=== PATIENT | female | born 1970 | race Caucasian/White ===

== ENCOUNTER 2018-06-02 03:04 | Emergency (ER) | payer BC ==
--- OUTSIDE RECORDS SUMMARY | 2018-06-02 03:06 | XMS REPORT | Continuity of Care Document ---
:1970 Author Organization Interface Problems Problem Status Onset Classification Date Comments Source Date Reported ACUTE HIP PAIN Active [facility] [address] [place] M25.552, M16.12 Active [place] [id number] [place] Acute hip pain Active Problem 11/14/2016 [facility] High Active Problem 11/14/2016 Ortho cholesterol and Spine Indigestion Active Problem 11/14/2016 [facility] Arthritis Active Problem 11/14/2016 [facility] Medications Medication Details Route Status Patient Ordering Order Source Instructions Provider Date Acetaminophen 1 tab, No Longer 11/11/19 Ortho 325 MG / Route: PO, Active 17 and Hydrocodone Drug Form: Spine Bitartrate 10 MG TAB, Oral Tablet Dosing Weight 118.455, kg, Q4H, PRN Pain Score 7-10, Start date: 11/11/16 8:56:00 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 (Same as: [place] 325/10) Acetaminophen 1 tab, No Longer 11/11/19 Ortho 325 MG / Route: PO, Active 17 and Hydrocodone Drug Form: Spine Bitartrate 5 MG TAB, Oral Tablet Dosing Weight 118.455, kg, Q4H, PRN Pain Score 4-6, Start date: 11/11/16 8:56:00 NURSERY WORKER, Duration: 30 day, Stop date: 12/11/16 8:55:00 CSTNotes: (Same as: [place] 325/5) Do not exceed 4gm/day of acetaminop hen. Zofran 4 mg, 2 No Longer 11/11/19 Ortho mL, Route: Active 17 and IV, Drug Spine form: INJ, Q8H, Dosing Weight 118.455, kg, PRN Nausea, Start date: 11/11/16 8:56:00 NURSERY WORKER, Duration: 30 day, Stop date: 12/11/16 8:55:00 CSTNotes: (Same as: Zofran) MEDICATION WASTE Product Size: 4 mg Product Wasted: ___ mg Lactated Ringers 1,000 mL, No Longer 11/11/19 Ortho 1,000 mL Rate: 40 Active 17 and ml/hr, Spine Infuse over: 25 hr, Route: IV, Dosing Weight 118.455 kg, Total Volume: 1,000, Start date: 11/11/16 7:36:00 NURSERY WORKER, Duration: 30 day, Stop date: 12/11/16 7:35:00 NURSERY WORKER valACYclovir 1 g 1 gm=1 Active 11/08/19 Ortho oral tablet tab, PO, 17 and Q12H, 0 Spine Refill(s) atorvastatin 20 20 mg=1 Active 11/08/19 Ortho mg oral tablet tab, PO, 17 and Daily, 0 Spine Refill(s) ibuprofen 800 mg 800 mg=1 Active 11/08/19 Ortho oral tablet tab, PO, 17 and TID, 0 Spine Refill(s) tramadol 50 mg=1 Active 02/26/20 Ortho hydrochloride 50 tab, PO, 16 and MG Oral Tablet PRN, 0 Spine Refill(s) Phentermine 37.5 mg=1 Active 02/26/20 Ortho Hydrochloride tab, PO, 16 and 37.5 MG Oral Daily, # Spine Tablet 30 tab, 0 Refill(s) Allergies, Adverse Reactions, Alerts Substance Category Reaction Severity Reaction Status Date Comments Source type Reported NKDA Assertion Drug Active allergy [facility] Immunizations Immunization Date Given Site Status Last Updated Comments Source Results Order Name Results Value Reference Date Interpretation Comments Source Range Hip w Hip w EXAM: MRI LEFT HIP WITH INTRA-ARTICULAR GADOLINIUM 02/25 [facility] contrast contrast /2015 - [place] MRI MRI DATE: 02/26/2016 Read by: Rajeev Caban MD Dictated Date/time: 02/26/16 12:23 Electronically Signed by: Rajeev Caban MD 02/26/16 12:36 FINAL REPORT INDICATION: Left hip pain. Osteoarthritis. TECHNIQUE: Multisequence multiplanar MRI examination of the left hip was performed following intra-articular gadolinium administration. Arthrogram is reported separately. COMPARISON STUDY: None. FINDINGS: Left hip alignment is normal. No fractures or destructive osseous lesions are detected. Moderate osteophyte formation is seen at the superolateral margin of acetabulum. Grade IV chondromalacia involves anterior weightbearing surface of the lateral femoral condyle, with associated subchondral marrow edema.. Otherwise grade II to III chondromalacia involves weightbearing surfaces of the femoral head and acetabulum. No fractures or destructive osseous lesions are seen. There is not MR evidence of avascular necrosis involving the left hip. Chronic tear and degeneration of the anterior acetabular labrum is evident. Moderate degeneration of remainder of acetabular labrum is evident. Abnormal bursal fluid collection about the left hip is not seen. IMPRESSION: 1. Moderate left hip osteoarthritis. 2. Chronic tear and degeneration of anterior left acetabular labrum and moderate degeneration of the remainder of labrum. Hip Hip EXAM: Left hip arthrogram 02/25 - [facility] arthrogram arthrogram /2015 - [place] Unilateral Unilateral DX DX DATE: 02/26/2016 Read by: Rajeev Caban MD Dictated Date/time: 02/26/16 12:36 Electronically Signed by: Rajeev Caban MD 02/26/16 12:38 FINAL REPORT INDICATION: pain in left hip. unilateral primary osteoarthritis, left hip. COMPARISON: None available. NUMBER OF IMAGES: 2 TOTAL FLUOROSCOPY TIME: 19 seconds TOTAL RADIATION DOSE: 414 uGy*cm2 DESCRIPTION OF PROCEDURE: The procedure was explained to the patient and informed consent was obtained. The patient was prepped and draped in the usual sterile fashion. Local anesthesia was affected with lidocaine 1% without epi nephrine administered subcutaneously. A 25-gauge needle was directed into the left hip joint space under fluoroscopic guidance. Injection of a small amount of nonionic contrast confirmed intra-articular position of the needle tip. Subsequently, approximately 10 cc gadolinium solution (gadolinium in normal saline, 1:200) was injected into the joint space without incident. Multiple spot images were obtained. No complications were encountered. FINDINGS: Moderate left hip osteoarthritis is evident. IMPRESSION: Technically successful intra-articular gadolinium injection, left hip. Post arthrogram magnetic resonance imaging of left hip is reported separately. Vital Signs Vital Sign Value Date Comments Source Heart Rate 79 11/11/2016 [facility] Respitory Rate 15 11/11/2016 [facility] Systolic (mm Hg) 110 11/11/2016 [facility] Diastolic (mm Hg) 75 11/11/2016 [facility] Systolic (mm Hg) 107 11/11/2016 [facility] Diastolic (mm Hg) 80 11/11/2016 [facility] Respitory Rate 16 11/11/2016 [facility] Heart Rate 80 11/11/2016 [facility] Heart Rate 84 11/11/2016 [facility] Respitory Rate 16 11/11/2016 [facility] Systolic (mm Hg) 121 11/11/2016 [facility] Diastolic (mm Hg) 57 11/11/2016 [facility] Temperature Oral (F) 98.1 F 11/11/2016 [facility] Weight 118.455 11/11/2016 [facility] BMI Calculated 44.83 11/11/2016 [facility] Height 162.56 cm 11/08/2016 [facility] Respitory Rate 16 02/26/2016 [facility] Heart Rate 76 02/26/2016 [facility] Systolic (mm Hg) 132 02/26/2016 [facility] Diastolic (mm Hg) 74 02/26/2016 [facility] Systolic (mm Hg) 130 02/26/2016 [facility] Sp[facility] Diastolic (mm Hg) 71 02/26/2016 [facility] Heart Rate 74 02/26/2016 [facility] Respitory Rate 16 02/26/2016 [facility] Systolic (mm Hg) 140 02/26/2016 [facility] Diastolic (mm Hg) 76 02/26/2016 [facility] Heart Rate 80 02/26/2016 [facility] Respitory Rate 16 02/26/2016 [facility] Sp[facility] Height 162.56 cm 02/26/2016 [facility] Weight 113.636 02/26/2016 [facility] BMI Calculated 43 02/26/2016 [facility] Temperature Oral (F) 98.7 F 02/26/2016 [facility] Spine Encounters Location Location Encounter Encounter Reason Attending ADM DC Status Source Details Type Number For Provider Date Date Visit [facility] Outpatient [id number] Jefry 02/25 02/26 [facility] /2015 [facility] Day Surgery [id number] Jefry 11/11 11/12 [facility] Procedures Procedure Code Date Perfomer Comments Source Hysterectomy [id number] 10/13/1997 [facility] section [id number] 10/13/1996 [facility] section [id number] 10/13/1995 [facility] Revision of scar of [id number] 10/13/1994 [facility] skin Spine Partial resection [id number] 10/13/1993 Ortho and of colon Spine Gastroplasty [id number] 10/13/1992 [facility] section [id number] 10/13/1991 [facility] section [id number] 10/13/1989 [facility] section [id number] 10/13/1988 [facility] Spine
--- OUTSIDE RECORDS SUMMARY | 2018-06-02 03:06 | XMS REPORT | Summary of Care ---
:1970 Author Organization [facility] Orthopedic [facility] Spine [facility] Address [address] [place] [phone]- Encounter HQ Syeda(FIN) [id number] Date(s): 02/26/16 - 02/26/16 [facility] Spine [facility] [address] [place] [address]- [phone] Discharge Disposition: Home Attending Physician: Jefry Cohen MD Referring Physician: Jefry Cohen MD Vital Signs Most recent to oldest 1 2 3 [Reference Range]: Height 162.56 cm (02/26/16 9:00 AM) Temperature Oral [96.4-99.1 98.7 DegF DegF] (02/26/16 9:00 AM) Blood Pressure [90-140/60-90 132/74 mmHg 130/71 mmHg 140/76 mmHg mmHg] (02/26/16 10:15 AM) (02/26/16 9:15 AM) (02/26/16 9:10 AM) Respiratory Rate [14-20 BRMIN] 16 BRMIN 16 BRMIN 16 BRMIN (02/26/16 10:15 AM) (02/26/16 9:15 AM) (02/26/16 9:10 AM) Peripheral Pulse Rate [60-100 76 bpm 74 bpm 80 bpm bpm] (02/26/16 10:15 AM) (02/26/16 9:15 AM) (02/26/16 9:10 AM) Weight 113.636 kg (02/26/16 9:00 AM) Body Mass Index 43 m2 (02/26/16 9:00 AM) Problem List No data available for this section Allergies, Adverse Reactions, Alerts Substance Reaction Severity Status NKDA Active Medications phentermine 37.5 mg oral tablet 37.5 mg=1 tab, PO, Daily, # 30 tab, 0 Refill(s) Start Date: 02/26/16 Stop Date: 03/27/16 Status: Orderedtramadol 50 mg oral tablet 50 mg=1 tab, PO, PRN, 0 Refill(s) Start Date: 02/26/16 Status: Ordered Results No data available for this section Immunizations No data available for this section Procedures No data available for this section Social History No data available for this section Assessment and Plan No data available for this section
--- OUTSIDE RECORDS SUMMARY | 2018-06-02 03:06 | XMS REPORT | Summary of Care ---
:1970 Author Organization [facility] Orthopedic [facility] Spine [facility] Address [address] [place] [phone]- Encounter HQ Darar_fab(FIN) [id number] Date(s): 11/11/16 - 11/11/16 [facility] Spine [facility] [address] [place] [address]- [phone] Discharge Disposition: Home or Self Care Attending Physician: Jefry Cohen MD Referring Physician: Jefry Cohen MD Vital Signs Most recent to oldest 1 2 3 [Reference Range]: Height 162.56 cm (11/08/16 12:08 PM) Temperature Oral [96.4-99.1 98.1 DegF DegF] (11/11/16 7:32 AM) Blood Pressure [90-140/60-90 110/75 mmHg 107/80 mmHg 121/57 mmHg mmHg] (11/11/16 9:15 AM) (11/11/16 9:00 AM) (11/11/16 8:45 AM) Respiratory Rate [14-20 BRMIN] 15 BRMIN 16 BRMIN 16 BRMIN (11/11/16 9:15 AM) (11/11/16 9:00 AM) (11/11/16 8:45 AM) Peripheral Pulse Rate [60-100 79 bpm 80 bpm 84 bpm bpm] (11/11/16 9:15 AM) (11/11/16 9:00 AM) (11/11/16 8:45 AM) Weight 118.455 kg (11/11/16 7:00 AM) Body Mass Index 44.83 m2 (11/11/16 7:00 AM) Problem List Condition Effective Dates Status Health Status Informant Acute hip pain(Confirmed) Active High cholesterol(Confirmed) Active Indigestion(Confirmed) Active Arthritis(Confirmed) Active Allergies, Adverse Reactions, Alerts Substance Reaction Severity Status NKDA Active Medications acetaminophen-hydrocodone 325 mg-10 mg oral tablet 1 tab, Route: PO, Drug Form: TAB, Dosing Weight 118.455, kg, Q4H, PRN Pain Score 7-10, Start date: 11/11/16 8:56:00 SODA DISPENSER, Stop date: 12/11/16 8:55:00 SODA DISPENSER Notes: Do not exceed 4gm/day of acetaminophen. (Same as: [place] 325/10) Start Date: 11/11/16 Stop Date: 11/12/16 Status: Discontinuedacetaminophen-hydrocodone 325 mg-5 mg oral tablet 1 tab, Route: PO, Drug Form: TAB, Dosing Weight 118.455, kg, Q4H, PRN Pain Score 4-6, Start date: 11/11/16 8:56:00 SODA DISPENSER, Duration: 30 day, Stop date: 8:55:00 SODA DISPENSER Notes: (Same as: [place] 325/5) Do not exceed 4gm/day of acetaminophen. Start Date: 11/11/16 Stop Date: 11/12/16 Status: Discontinuedatorvastatin 20 mg oral tablet 20 mg=1 tab, PO, Daily, 0 Refill(s) Start Date: 11/08/16 Status: Orderedibuprofen 800 mg oral tablet 800 mg=1 tab, PO, TID, 0 Refill(s) Start Date: 11/08/16 Status: OrderedLactated Ringers 1,000 mL 1,000 mL, Rate: 40 ml/hr, Infuse over: 25 hr, Route: IV, Dosing Weight 118.455 kg, Total Volume: 1,000, Start date: 11/11/16 7:36:00 SODA DISPENSER, Duration: 30 day, Stop date: 12/11/16 7:35:00 SODA DISPENSER Start Date: 11/11/16 Stop Date: 11/12/16 Status: DiscontinuedvalACYclovir 1 g oral tablet 1 gm=1 tab, PO, Q12H, 0 Refill(s) Start Date: 11/08/16 Status: OrderedZofran 4 mg, 2 mL, Route: IV, Drug form: INJ, Q8H, Dosing Weight 118.455, kg, PRN Nausea, Start date: 11/11/16 8:56:00 SODA DISPENSER, Duration: 30 day, Stop date: 12/11/16 8:55:00 SODA DISPENSER Notes: (Same as: Kishore) MEDICATION WASTE Product Size: 4 mgProduct Wasted: ___ mg Start Date: 11/11/16 Stop Date: 11/12/16 Status: Discontinued Results No data available for this section Immunizations No data available for this section Procedures Procedure Date Related Diagnosis Body Site Hysterectomy 1997 section 1996 section 1995 Revision of scar of skin 1994 Partial resection of colon 1993 Gastroplasty 1992 section 1991 section 1989 section 1988 Social History Social History Type Response Substance Abuse Use: None. Exercise Exercise frequency: 3-4 times/week. Exercise type: Walking, Swimming. Alcohol Current, Type Wine. Frequency: Daily. Smoking Status Former smoker; Type: Cigarettes; Tobacco use per day: 15; Number of years: 10; Exposure to Tobacco Smoke None; Cigarette Smoking Last 365 Days Yes; Reg Smoking Cessation Counseling No1 1quit 3 months ago Assessment and Plan No data available for this section
[2018-06-02] MEDS ORDERED: KETOROLAC 30 MG/ML INJ ONE (03:28)
[2018-06-02 05:51] LABS: Urine Blood NEGATIVE (NEG); Urine Glucose NEGATIVE (NEG); Urine Protein NEGATIVE (NEG); Urine Specific Gravity 1.025 (1.005-1.030); Urine pH 5.5 (5.0-7.0)
--- NOTE | 2018-06-02 05:55 | EDPHYS ---
Physician Documentation [facility] Name: Alisson Palmer Age: 48 yrs Sex: Female : 1970 Arrival Date: 06/02/2018 Time: 03:08 Bed 6 Private MD: Jefry Levin ED Physician Maco Seaman HPI: 06/02 07:04 This 48 yrs old Female presents to ER via Ambulatory with complaints of Back tw4 Pain. 07:04 The patient presents with pain that is acute. The patient presents with pain that is tw4 acute, with no known mechanism of injury. The symptoms are located in the low back. Onset: The symptoms/episode began/occurred today. The pain does not radiate. Associated signs and symptoms: The patient has no apparent associated signs or symptoms. The problem was sustained when bending over. Modifying factors: The patient symptoms are alleviated by nothing, the patient symptoms are aggravated by any movement. Severity of symptoms: At their worst the symptoms were moderate, in the emergency department the symptoms are unchanged. The patient has not experienced similar symptoms in the past. 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 N/A - Hysterectomy lp1 Historical: - Allergies: 03:34 No Known Allergies; lp1 - Home Meds: 03:34 valacyclovir 1 gram Oral tab 2 tab 2 times per day [Active]; ibuprofen 800 mg Oral tab lp1 1 tab 3 times per day for Pain [Active]; metformin 1,000 mg Oral tr24 1 tab once daily [Active]; lisinopril 10 mg Oral tab 1 tab once daily [Active]; phentermine 37.5 mg oral cap 1 cap once daily [Active]; atorvastatin 40 mg oral tab 1 tab once daily [Active]; - PMHx: 03:34 Hyperlipidemia; Hypertension; Diabetes - NIDDM; lp1 - PSHx: 03:34 Hysterectomy; x5; Partial intestine removal; Stomach surgery; lp1 - Immunization history:: Adult Immunizations up to date. - Social history:: Smoking status: Patient/guardian denies using tobacco. - Ebola Screening: : No symptoms or risks identified at this time. ROS: 07:04 Constitutional: Negative for fever, chills, and weight loss, Cardiovascular: Negative tw4 for chest pain, palpitations, and edema, Respiratory: Negative for shortness of breath, cough, wheezing, and pleuritic chest pain, Abdomen/GI: Negative for abdominal pain, nausea, vomiting, diarrhea, and constipation, MS/Extremity: Negative for injury and deformity. 07:04 Back: Positive for decreased range of motion, pain at rest, pain with movement. Exam: 07:04 Constitutional: This is a well developed, well nourished patient who is awake, alert, tw4 and in no acute distress. Head/Face: Normocephalic, atraumatic. Chest/axilla: Normal chest wall appearance and motion. Nontender with no deformity. No lesions are appreciated. Cardiovascular: Regular rate and rhythm with a normal S1 and S2. No gallops, murmurs, or rubs. Normal PMI, no JVD. No pulse deficits. Respiratory: Lungs have equal breath sounds bilaterally, clear to auscultation and percussion. No rales, rhonchi or wheezes noted. No increased work of breathing, no retractions or nasal flaring. Abdomen/GI: Soft, non-tender, with normal bowel sounds. No distension or tympany. No guarding or rebound. No evidence of tenderness throughout. MS/ Extremity: Pulses equal, no cyanosis. Neurovascular intact. Full, normal range of motion. Neuro: Awake and alert, GCS 15, oriented to person, place, time, and situation. Cranial nerves II-XII grossly intact. Motor strength 5/5 in all extremities. Sensory grossly intact. Cerebellar exam normal. Normal gait. 07:04 Back: pain, that is moderate, ROM is decreased, with all movement, normal spinal alignment noted. Vital Signs: 03:30 BP 142 / 107; Pulse 112; Resp 18; Temp 97.6(O); Pulse Ox 99% on R/A; Weight 122.47 kg; lp1 Height 5 ft. 4 in. (162.56 cm); Pain 8/10; 04:31 BP 112 / 71; Pulse 93; Resp 18; Pulse Ox 98% on R/A; Pain 6/10; lp1 03:30 Body Mass Index 46.34 (122.47 kg, 162.56 cm) lp1 MDM: 03:25 Patient medically screened. tw4 07:04 Differential diagnosis: arthritis, Pyelonephritis spinal injury, sprain, tw4 Ureterolithiasis. Data reviewed: vital signs, nurses notes. Data interpreted: Pulse oximetry: Interpretation: normal. Medication response: Response to treatment: the patient's symptoms have markedly improved after treatment, and as a result, I will discharge patient. Special discussion: I discussed with the patient/guardian in detail that at this point there is no indication for admission to the hospital. It is understood, however, that if the symptoms persist or worsen the patient needs to return immediately for re-evaluation. 06/02 03:17 Order name: Urinalysis 4 06/02 03:17 Order name: Saline Lock; Complete Time: 03:30 tw4 06/02 03:36 Order name: CT Stone Protocol 06/02 05:36 Order name: Urine Dipstick--Ancillary (enter results) ms Administered Medications: 03:30 Drug: TORadol 30 mg Route: IVP; Site: right antecubital; ao 04:32 Follow up: Response: Pain is decreased lp1 Disposition: 06/02/18 05:55 Discharged to Home. Impression: Sprain of ligaments of lumbar spine. - Condition is Stable. - Prescriptions for Ibuprofen 800 mg Oral Tablet - take 1 tablet by ORAL route every 8 hours As needed take with food; 30 tablet. Cyclobenzaprine 10 mg Oral Tablet - take 1 tablet by ORAL route every 8 hours As needed; 30 tablet. - Medication Reconciliation Form, Thank You Letter, Antibiotic Education, Prescription Opioid Use form. - Follow up: Jefry Levin MD; When: Upon discharge from the Emergency Department; Reason: Recheck today's complaints, Continuance of care. - Problem is new. - Symptoms have improved. Signatures: Dispatcher [employer] EDEufemia Herring RN RN lp1 Neil Ramirez RN RN ao Wadley, Terrence, MD MD tw4 Corrections: (The following items were deleted from the chart) 06:14 05:55 06/02/2018 05:55 Discharged to Home. Impression: Sprain of ligaments of lumbar lp1 spine. Condition is Stable. Forms are Medication Reconciliation Form, Thank You Letter, Antibiotic Education, Prescription Opioid Use. Follow up: Jefry Levin; When: Upon discharge from the Emergency Department; Reason: Recheck today's complaints, Continuance of care. Problem is new. Symptoms have improved. tw4
--- NOTE | 2018-06-02 05:55 | ER ---
Nurse's Notes [facility] Name: Alisson Palmer Age: 48 yrs Sex: Female : 1970 Arrival Date: 06/02/2018 Time: 03:08 Bed 6 Private MD: Jefry Levin Diagnosis: Sprain of ligaments of lumbar spine Presentation: 06/02 03:27 Presenting complaint: Patient states: Pain to right low back that is constant and also lp1 spasm-like; Began yesterday, worse tonight; States doing some cleaning around house, Denies lifting anything heavy, no urinary symptoms, pain does not radiate; no relief with massage, Ibuprofen, or heating pads. Transition of care: patient was not received from another setting of care. Onset of symptoms was June 01, 2018. Risk Assessment: Do you want to hurt yourself or someone else? Patient reports no desire to harm self or others. Initial Sepsis Screen: Does the patient meet any 2 criteria? No. Patient's initial sepsis screen is negative. Does the patient have a suspected source of infection? No. Patient's initial sepsis screen is negative. Care prior to arrival: None. 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 lp1 Historical: - Allergies: 03:34 No Known Allergies; lp1 - Home Meds: 03:34 valacyclovir 1 gram Oral tab 2 tab 2 times per day [Active]; ibuprofen 800 mg Oral tab lp1 1 tab 3 times per day for Pain [Active]; metformin 1,000 mg Oral tr24 1 tab once daily [Active]; lisinopril 10 mg Oral tab 1 tab once daily [Active]; phentermine 37.5 mg oral cap 1 cap once daily [Active]; atorvastatin 40 mg oral tab 1 tab once daily [Active]; - PMHx: 03:34 Hyperlipidemia; Hypertension; Diabetes - NIDDM; lp1 - PSHx: 03:34 Hysterectomy; x5; Partial intestine removal; Stomach surgery; lp1 - Immunization history:: Adult Immunizations up to date. - Social history:: Smoking status: Patient/guardian denies using tobacco. - Ebola Screening: : No symptoms or risks identified at this time. Screenin:36 Abuse screen: Denies threats or abuse. Denies injuries from another. Nutritional lp1 screening: No deficits noted. Tuberculosis screening: No symptoms or risk factors identified. Fall Risk None identified. Assessment: 03:35 General: Appears uncomfortable, Behavior is appropriate for age, crying. Pain: lp1 Complains of pain in right mid back and right low back Pain does not radiate. Pain currently is 8 out of 10 on a pain scale. Quality of pain is described as sharp, stabbing, Pain began 1 day ago. Is continuous. Neuro: Level of Consciousness is awake, alert, obeys commands, Oriented to person, place, time, situation. Cardiovascular: Patient's skin is warm and dry. Respiratory: Respiratory effort is even, unlabored. GI: No signs and/or symptoms were reported involving the gastrointestinal system. : Denies burning with urination, discharge, pain. EENT: No signs and/or symptoms were reported regarding the EENT system. Derm: Skin is pink, warm \T\ dry. Musculoskeletal: Circulation, motion, and sensation intact. 04:32 Reassessment: Patient appears in no apparent distress at this time. Patient is alert, lp1 oriented x 3, equal unlabored respirations, skin warm/dry/pink. Aware of waiting for CT results Patient states symptoms have improved. 05:30 Reassessment: Patient appears in no apparent distress at this time. No changes from lp1 previously documented assessment. Patient and/or family updated on plan of care and expected duration. Pain level reassessed. Vital Signs: 03:30 BP 142 / 107; Pulse 112; Resp 18; Temp 97.6(O); Pulse Ox 99% on R/A; Weight 122.47 kg; lp1 Height 5 ft. 4 in. (162.56 cm); Pain 8/10; 04:31 BP 112 / 71; Pulse 93; Resp 18; Pulse Ox 98% on R/A; Pain 6/10; lp1 03:30 Body Mass Index 46.34 (122.47 kg, 162.56 cm) lp1 ED Course: 03:08 Patient arrived in ED. es 03:08 Jefry Levin MD is Private Physician. es 03:16 Maco Seaman MD is Attending Physician. tw4 03:27 Eufemia Hernandez RN is Primary Nurse. lp1 03:27 Missed attempt(s): 20 gauge in left antecubital area. lp1 03:29 Triage completed. lp1 03:29 Arm band placed on left wrist. lp1 03:30 Inserted saline lock: 20 gauge in right antecubital area, using aseptic technique. ao Blood collected. 03:37 Patient has correct armband on for positive identification. lp1 04:11 CT completed. Patient tolerated procedure well. Patient moved to CT via wheelchair. Patient moved back from CT. 04:23 CT Stone Protocol In Process Unspecified. EDMS 05:54 Jefry Levin MD is Referral Physician. tw4 06:13 No provider procedures requiring assistance completed. IV discontinued, No lp1 redness/swelling at site. Pressure dressing applied. Administered Medications: 03:30 Drug: TORadol 30 mg Route: IVP; Site: right antecubital; ao 04:32 Follow up: Response: Pain is decreased lp1 Outcome: 05:55 Discharge ordered by MD. tw4 06:14 Discharged to home ambulatory. lp1 06:14 Condition: good 06:14 Discharge instructions given to patient, Instructed on discharge instructions, follow up and referral plans. medication usage, Demonstrated understanding of instructions, follow-up care, medications, Prescriptions given X 2. 06:14 Patient left the ED. lp1 Signatures: Dispatcher [employer] EDRiri Kim Ervin eh Pena, Laura, RN OZ lp1 Neil Ramirez RN RN ao Wadley, Terrence, MD MD tw4
--- NOTE | 2018-06-02 08:15 | RAD REPORT ---
EXAM DESCRIPTION: CT - Stone Protocol - 06/02/2018 6:48 am CLINICAL HISTORY: Flank pain. FLANK PAIN COMPARISON: No comparisons TECHNIQUE: Axial images were obtained without oral or IV contrast. Lack of contrast limits solid org an and vascular assessment. The [id number] spans the entirety of the system partially obscuring uppermost abdomen and lung bases. Coronal reformatted images were obtained and reviewed. All CT scans are performed using dose optimization technique as appropriate and may include automated exposure control or mA/KV adjustment according to patient size. FINDINGS: The lower lung rowe are clear. Cholecystectomy. Postsurgical changes about the stomach. Imaged portions of the liver and spleen show no suspicious findings on non-contrast imaging. The panc reas and adrenal glands are normal. No pathologic lymphadenopathy in the abdomen or pelvis. No urinary tract stones or obstructive uropathy. No bowel obstruction, free air, free fluid or abscess. The appendix is not identified as a discrete s tructure, however, no secondary findings of appendicitis are identified. No significant bony abnormality. IMPRESSION: No urinary tract stones or obstructive uropathy.
== END 2018-06-02 06:14 | disposition home or self-care (01) ==
LOC: ER 03:04
DX: S33.5XXA Sprain of ligaments of lumbar spine, initial encounter (principal); I10 Essential (primary) hypertension; E11.9 Type 2 diabetes mellitus without complications; E78.5 Hyperlipidemia, unspecified
CPT/HCPCS: 74176; 76377; 81003; 96374; 99284

== ENCOUNTER 2018-09-01 07:46 | Emergency (ER) | payer BC ==
--- OUTSIDE RECORDS SUMMARY | 2018-09-01 07:48 | XMS REPORT | Continuity of Care Document ---
:1970 Author Organization Interface Problems Problem Status Onset Classification Date Comments Source Date Reported ACUTE HIP PAIN Active [facility] M25.552, M16.12 Active [place] [address] [facility] Acute hip pain Active Problem 11/14/2016 Ortho [...] Pain Score 7-10, Start date: 11/11/16 8:56:00 WASTE HAND, Stop date: 12/11/16 8:55:00 CSTNotes: Do not exceed 4gm/day of acetaminop hen. (Same as: [place] 325/10) Acetaminophen 1 tab, No Longer 11/11/19 Ortho 325 MG / Route: PO, Active 17 and Hydrocodone Drug Form: Spine Bitartrate 5 MG TAB, Oral Tablet Dosing Weight 118.455, kg, Q4H, PRN Pain Score 4-6, Start date: 11/11/16 8:56:00 WASTE HAND, Duration: 30 day, Stop date: 12/11/16 8:55:00 CSTNotes: (Same as: [place] 325/5) Do not exceed 4gm/day of acetaminop hen. Zofran 4 mg, 2 No Longer 11/11/19 Ortho mL, Route: Active 17 and IV, Drug Spine form: INJ, Q8H, Dosing Weight 118.455, kg, PRN Nausea, Start date: 11/11/16 8:56:00 WASTE HAND, Duration: 30 day, Stop date: 12/11/16 8:55:00 CSTNotes: (Same as: Zofran) MEDICATION WASTE Product Size: 4 mg Product Wasted: ___ mg Lactated Ringers 1,000 mL, No Longer 11/11/19 Ortho 1,000 mL Rate: 40 Active 17 and ml/hr, Spine Infuse over: 25 hr, Route: IV, Dosing Weight 118.455 kg, Total Volume: 1,000, Start date: 11/11/16 7:36:00 WASTE HAND, Duration: 30 day, Stop date: 12/11/16 7:35:00 WASTE HAND valACYclovir 1 g 1 gm=1 Active 11/08/19 [...] Reaction Status Date Comments Source type Reported Immunizations Immunization Date Given Site Status Last Updated Comments Source Results Order Name Results Value Reference Date Interpretation Comments Source Range Hip w Hip w EXAM: MRI LEFT HIP WITH INTRA-ARTICULAR GADOLINIUM 02/25 [facility] contrast contrast /2015 - [facility] [facility] MRI DATE: 02/26/2016 Read by: Rajeev [...] Hip EXAM: Left hip arthrogram 02/25 - [facility] arthrogram arthrogram /2015 - [place] Unilateral Unilateral DX DX DATE: 02/26/2016 Read [...] Type Number For Provider Date Date Visit [facility] Outpatient [id number] Jefry 02/25 02/26 [facility] /2015 [facility] [id number] Jefry 11/11 11/12 [facility] Orthopedic and and Spine Spine [facility] Procedures Procedure Code Date Perfomer Comments Source Hysterectomy [id number] 10/13/1997 [facility] and Spine section [id number] 10/13/1996 [facility] Spine section [id number] 10/13/1995 Ortho and Spine Revision of scar of [id number] 10/13/1994 Ortho and skin Spine Partial resection [id number] 10/13/1993 Ortho and of colon Spine Gastroplasty [id number] 10/13/1992 Ortho and Spine section [id number] 10/13/1991 Ortho and Spine section [id number] 10/13/1989 Ortho and Spine section [id number] 10/13/1988 Ortho and Spine
[2018-09-01] MEDS ORDERED: HYDROCODONE/APAP 10/325 TAB ONE (08:59)
--- NOTE | 2018-09-01 09:48 | RAD REPORT ---
EXAM DESCRIPTION: RAD - Hip Right 2 View - 09/01/2018 9:10 am CLINICAL HISTORY: PAIN COMPARISON: No comparisons FINDINGS: No fracture, dislocation or AVN. IMPRESSION: No acute finding evident.
--- NOTE | 2018-09-01 09:52 | ER ---
Nurse's Notes [facility] Name: Alisson Palmer Age: 48 yrs Sex: Female : 1970 Arrival Date: 09/01/2018 Time: 07:50 Bed 12 Private MD: Jefry Levin Diagnosis: Pain in right hip Presentation: 09/01 08:01 Presenting complaint: Patient states: Right hip pain began 08-28-18, denies trauma, it jl7 hurts to get up, get down turn and walk. Transition of care: patient was not received from another setting of care. Onset of symptoms was August 28, 2018. Risk Assessment: Do you want to hurt yourself or someone else? Patient reports no desire to harm self or others. Initial Sepsis Screen: Does the patient meet any 2 criteria? No. Patient's initial sepsis screen is negative. Does the patient have a suspected source of infection? No. Patient's initial sepsis screen is negative. Care prior to arrival: None. 08:01 Method Of Arrival: Ambulatory jl7 08:01 Acuity: IRIS 4 jl7 Triage Assessment: 08:04 General: Appears in no apparent distress. uncomfortable, Behavior is calm, cooperative, jl7 appropriate for age. Pain: Complains of pain in right hip Pain currently is 2 out of 10 on a pain scale. at worst was 10 out of 10 on a pain scale. 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 - Social history:: Smoking status: Patient/guardian denies using tobacco, Patient uses alcohol, Glass of wine per day. - Ebola Screening: : No symptoms or risks identified at this time. Screenin:09 Abuse screen: Denies threats or abuse. Denies injuries from another. Nutritional iw screening: No deficits noted. Tuberculosis screening: No symptoms or risk factors identified. Fall Risk Fall in past 12 months (25 points). Assessment: 08:09 General: Appears in no apparent distress. Behavior is calm, cooperative. Pain: iw Complains of pain in right hip. Neuro: Level of Consciousness is awake, alert, obeys commands. Cardiovascular: Patient's skin is warm and dry. Vital Signs: 08:04 BP 132 / 82; Pulse 89; Resp 16 S; Temp 98.2(O); Pulse Ox 99% on R/A; Weight 127.01 kg jl7 (R); Height 5 ft. 4 in. (162.56 cm) (R); Pain 210; 08:04 Body Mass Index 48.06 (127.01 kg, 162.56 cm) jl7 ED Course: 07:50 Patient arrived in ED. mr 07:50 Jefry Levin MD is Private Physician. mr 08:03 Triage completed. jl7 08:04 Arm band placed on right wrist. jl7 08:09 Gita Ortiz RN is Primary Nurse. iw 08:15 Patient has correct armband on for positive identification. iw 08:19 James Jesus PA is PHCP. jr8 08:19 Jigar Samaniego MD is Attending Physician. jr8 09:09 X-ray completed. Patient tolerated procedure well. Patient moved back from radiology. jb2 09:51 Burt Timmons MD is Referral Physician. jr8 10:12 No provider procedures requiring assistance completed. Patient did not have IV access iw during this emergency room visit. Administered Medications: 08:53 Drug: [place] 10 mg-325 mg 1 tabs Route: PO; iw 10:00 Follow up: Response: No adverse reaction; Pain is decreased iw Outcome: 09:51 Discharge ordered by . jr8 10:12 Discharged to home via wheelchair, with family. iw 10:12 Condition: good 10:12 Discharge instructions given to patient, family, Instructed on discharge instructions, follow up and referral plans. 10:13 Patient left the ED. iw Signatures: Ingrid Paris mr PalmaKiran jb2 Gita Ortiz, RN RN iw James Jesus PA PA jr8 Eduardo Thompson, OZ RN jl7
--- NOTE | 2018-09-01 09:52 | EDPHYS ---
Physician Documentation [facility] Name: Alisson Palmer Age: 48 yrs Sex: Female : 1970 Arrival Date: 09/01/2018 Time: 07:50 Bed 12 Private MD: Jefry Levin ED Physician Jigar Samaniego HPI: 09/01 08:44 This 48 yrs old Female presents to ER via Ambulatory with complaints of Hip jr8 Pain. 08:44 The patient or guardian reports pain. The complaints affect the right hip. Onset: The jr8 symptoms/episode began/occurred gradually, 2 day(s) ago. Modifying factors: The symptoms are alleviated by nothing, the symptoms are aggravated by flexion, weight bearing. Associated signs and symptoms: Pertinent positives: None. Severity of symptoms: At their worst the symptoms were moderate, in the emergency department the symptoms are unchanged. The patient has not experienced similar symptoms in the past. The patient has not recently seen a physician. Patient stated that since they had a rental car her hip has been hurting. Stated that the seat was smaller and more rigid. Could not sit in it properly. Since then has had this burning and aching in the right hip region . 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 - Social history:: Smoking status: Patient/guardian denies using tobacco, Patient uses alcohol, Glass of wine per day. - Ebola Screening: : No symptoms or risks identified at this time. ROS: 08:44 Eyes: Negative for injury, pain, redness, and discharge, ENT: Negative for injury, jr8 pain, and discharge, Neck: Negative for injury, pain, and swelling, Cardiovascular: Negative for chest pain, palpitations, and edema, Respiratory: Negative for shortness of breath, cough, wheezing, and pleuritic chest pain, Abdomen/GI: Negative for abdominal pain, nausea, vomiting, diarrhea, and constipation, Back: Negative for injury and pain, Skin: Negative for injury, rash, and discoloration, Neuro: Negative for headache, weakness, numbness, tingling, and seizure. 08:44 MS/extremity: Positive for pain, of the right hip, Negative for decreased range of motion, paresthesias, tenderness. Exam: 08:44 Eyes: Pupils equal round and reactive to light, extra-ocular motions intact. Lids and jr8 lashes normal. Conjunctiva and sclera are non-icteric and not injected. Cornea within normal limits. Periorbital areas with no swelling, redness, or edema. ENT: Nares patent. No nasal discharge, no septal abnormalities noted. Tympanic membranes are normal and external auditory canals are clear. Oropharynx with no redness, swelling, or masses, exudates, or evidence of obstruction, uvula midline. Mucous membranes moist. Neck: Trachea midline, no thyromegaly or masses palpated, and no cervical lymphadenopathy. Supple, full range of motion without nuchal rigidity, or vertebral point tenderness. No Meningismus. Cardiovascular: Regular rate and rhythm with a normal S1 and S2. No gallops, murmurs, or rubs. Normal PMI, no JVD. No pulse deficits. Respiratory: Lungs have equal breath sounds bilaterally, clear to auscultation and percussion. No rales, rhonchi or wheezes noted. No increased work of breathing, no retractions or nasal flaring. Abdomen/GI: Soft, non-tender, with normal bowel sounds. No distension or tympany. No guarding or rebound. No evidence of tenderness throughout. Back: No spinal tenderness. No costovertebral tenderness. Full range of motion. Skin: Warm, dry with normal turgor. Normal color with no rashes, no lesions, and no evidence of cellulitis. Neuro: Awake and alert, GCS 15, oriented to person, place, time, and situation. Cranial nerves II-XII grossly intact. Motor strength 5/5 in all extremities. Sensory grossly intact. Cerebellar exam normal. Normal gait. 08:44 Musculoskeletal/extremity: Extremities: grossly normal except: noted in the right hip: pain, with flexion of hip, ROM: full active range of motion, in all extremities, full passive range of motion, in all extremities, limited active range of motion due to pain, in the right hip, limited passive range of motion due to pain, in the right hip, Circulation is intact in all extremities. Sensation intact. Vital Signs: 08:04 BP 132 / 82; Pulse 89; Resp 16 S; Temp 98.2(O); Pulse Ox 99% on R/A; Weight 127.01 kg jl7 (R); Height 5 ft. 4 in. (162.56 cm) (R); Pain 2/10; 08:04 Body Mass Index 48.06 (127.01 kg, 162.56 cm) jl7 MDM: 08:19 Patient medically screened. jr8 09:50 Data reviewed: vital signs, nurses notes, radiologic studies, plain films, and as a jr8 result, I will discharge patient. Data interpreted: Pulse oximetry: on room air is 99 %. Interpretation: normal. Counseling: I had a detailed discussion with the patient and/or guardian regarding: the historical points, exam findings, and any diagnostic results supporting the discharge/admit diagnosis, radiology results, the need for outpatient follow up, a orthopedic surgeon, to return to the emergency department if symptoms worsen or persist or if there are any questions or concerns that arise at home. 09/01 08:43 Order name: XRAY Hip RIGHT 2 view jr8 09/01 09:49 Order name: RAD; Complete Time: 09:50 EDMS Administered Medications: 08:53 Drug: [place] 10 mg-325 mg 1 tabs Route: PO; iw 10:00 Follow up: Response: No adverse reaction; Pain is decreased iw Disposition: 15:29 Co-signature as Attending Physician, Jigar Samaniego MD I agree with the assessment and taj plan of care. Disposition: 09/01/18 09:51 Discharged to Home. Impression: Pain in right hip. - Condition is Stable. - Discharge Instructions: Joint Pain, Arthritis, Hip Pain. - Prescriptions for Mobic 7.5 mg Oral Tablet - take 1 tablet by ORAL route once daily take with food; 20 tablet. Tylenol- Codeine #3 300-30 mg Oral Tablet - take 2 tablets by ORAL route every 6 hours As needed; 12 tablet. Zanaflex 4 mg Oral Tablet - take 1 tablet by ORAL route every 8 hours As needed; 20 tablet. - Medication Reconciliation Form, Thank You Letter, Antibiotic Education, Prescription Opioid Use form. - Follow up: Burt Timmons MD; When: 1 week; Reason: If symptoms return, Recheck today's complaints, Continuance of care, Re-evaluation by your physician. - Problem is new. - Symptoms have improved. Signatures: Dispatcher [employer] EDVT Jigar Samaniego MD MD cha Williams, Irene, RN RN James Luna PA PA jr8 Eduardo Thompson RN RN jl7 Corrections: (The following items were deleted from the chart) 10:13 09:51 09/01/2018 09:51 Discharged to Home. Impression: Pain in right hip. Condition is iw Stable. Forms are Medication Reconciliation Form, Thank You Letter, Antibiotic Education, Prescription Opioid Use. Follow up: Burt Timmons; When: 1 week; Reason: If symptoms return, Recheck today's complaints, Continuance of care, Re-evaluation by your physician. Problem is new. Symptoms have improved. jr8
== END 2018-09-01 10:13 | disposition home or self-care (01) ==
LOC: ER 07:46
DX: M25.551 Pain in right hip (principal); I10 Essential (primary) hypertension; E78.5 Hyperlipidemia, unspecified; E11.9 Type 2 diabetes mellitus without complications
CPT/HCPCS: 99283

== ENCOUNTER 2019-08-23 10:35 | Emergency (ER) | payer BC ==
--- NOTE | 2019-08-23 11:06 | ER ---
Nurse's Notes [facility] Name: Alisson Palmer Age: 49 yrs Sex: Female : 1970 Arrival Date: 08/23/2019 Time: 10:38 Bed 12 Private MD: Jefry Levin Diagnosis: Low back pain;Muscle spasm of back Presentation: 08/23 10:40 Presenting complaint: Patient states: lower back pain x 1 week ago. Pt states "the only aa5 thing I can think of that may put a strain on my back is that I sit at work and my printer is behind me so I kind of push the chair with my body to get out of it". pt denies fall. Pt states "I've been taking 2 Ibuprofen 800 mg every 4 hours and it's not helping". Transition of care: patient was not received from another setting of care. Onset of symptoms was August 2019. Risk Assessment: Do you want to hurt yourself or someone else? Patient reports no desire to harm self or others. Initial Sepsis Screen: Does the patient meet any 2 criteria? No. Patient's initial sepsis screen is negative. Does the patient have a suspected source of infection? No. Patient's initial sepsis screen is negative. Care prior to arrival: None. 10:40 Acuity: IRIS 4 aa5 10:40 Method Of Arrival: Ambulatory aa5 Triage Assessment: 11:28 General: Behavior is calm. Musculoskeletal: Range of motion: intact in all extremities. 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 - Social history:: Smoking status: Patient/guardian denies using tobacco, Patient/guardian denies using alcohol, street drugs, The patient lives with family. - Ebola Screening: : No symptoms or risks identified at this time. - Family history:: not pertinent. Screenin:15 Abuse screen: Denies threats or abuse. Denies injuries from another. Nutritional iw screening: No deficits noted. Tuberculosis screening: No symptoms or risk factors identified. Fall Risk None identified. Assessment: 11:00 General: Appears in no apparent distress. Pain: Complains of pain in lumbar area Pain iw radiates to right low back and left low back. Neuro: Level of Consciousness is awake, alert, obeys commands, Oriented to person, place, time, situation, Moves all extremities. Full function. Cardiovascular: Patient's skin is warm and dry. Respiratory: Respiratory effort is even, unlabored, Respiratory pattern is regular, symmetrical. GI: No signs and/or symptoms were reported involving the gastrointestinal system. : No signs and/or symptoms were reported regarding the genitourinary system. Derm: Skin is intact, is healthy with good turgor. Musculoskeletal: Range of motion: intact in all extremities, Reports pain in lumbar area. Vital Signs: 10:43 BP 119 / 60; Pulse 91; Resp 18 S; Temp 97.4(TE); Pulse Ox 98% on R/A; Weight 127.01 kg aa5 (R); Height 5 ft. 4 in. (162.56 cm) (R); Pain 9/10; 10:43 Body Mass Index 48.06 (127.01 kg, 162.56 cm) aa5 ED Course: 10:38 Patient arrived in ED. rg4 10:38 Jefry Levin MD is Private Physician. rg4 10:42 Triage completed. aa5 10:42 Arm band placed on. aa5 10:46 Winnie Fraser RN is Primary Nurse. aa5 10:48 Chet Galvan MD is Attending Physician. ma2 11:00 Patient has correct armband on for positive identification. iw 11:14 Primary Nurse role handed off by Winnie Fraser RN iw 11:14 Gita Ortiz, OZ is Primary Nurse. iw 11:15 No provider procedures requiring assistance completed. Patient did not have IV access iw during this emergency room visit. Administered Medications: 11:13 Drug: TORadol 30 mg Route: IM; Site: left gluteus; iw 11:25 Follow up: Response: No adverse reaction iw 11:13 Drug: Valium 5 mg Route: IM; Site: left ventrogluteal; iw 11:25 Follow up: Response: No adverse reaction iw Outcome: 11:05 Discharge ordered by . ma2 11:28 Discharged to home ambulatory, with family. iw 11:28 Condition: good 11:28 Discharge instructions given to patient, Instructed on discharge instructions, follow up and referral plans. medication usage, Demonstrated understanding of instructions, follow-up care, medications, Prescriptions given X 2. 11:29 Patient left the ED. iw Signatures: Gita Ortiz RN RN Winnie Heath RN RN aa5 Nancy Norris rg4 Chet Galvan MD MD ma2
--- NOTE | 2019-08-23 11:06 | EDPHYS ---
Physician Documentation [facility] Name: Alisson Palmer Age: 49 yrs Sex: Female : 1970 Arrival Date: 08/23/2019 Time: 10:38 Bed 12 Private MD: Jefry Levin ED Physician Chet Galvan HPI: 08/23 11:03 This 49 yrs old Female presents to ER via Ambulatory with complaints of Back ma2 Pain. 11:03 The patient presents with pain that is acute. The symptoms are located in the low back. ma2 Onset: The symptoms/episode began/occurred gradually, 5 day(s) ago. The pain does not radiate. Associated signs and symptoms: Pertinent negatives: chest pain, dysuria, fever, headache, hematuria, incontinence, nausea, numbness, tingling, vomiting, weakness. Severity of symptoms: At their worst the symptoms were mild, moderate, in the emergency department the symptoms are unchanged. The patient has experienced similar episodes in the past. 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 - Social history:: Smoking status: Patient/guardian denies using tobacco, Patient/guardian denies using alcohol, street drugs, The patient lives with family. - Ebola Screening: : No symptoms or risks identified at this time. - Family history:: not pertinent. ROS: 11:03 Constitutional: Negative for fever, chills, and weight loss. ma2 11:03 All other systems are negative. Exam: 11:03 Constitutional: This is a well developed, well nourished patient who is awake, alert, ma2 and in no acute distress. Chest/axilla: Normal chest wall appearance and motion. Nontender with no deformity. No lesions are appreciated. Cardiovascular: Regular rate and rhythm with a normal S1 and S2. No gallops, murmurs, or rubs. Normal PMI, no JVD. No pulse deficits. Respiratory: Lungs have equal breath sounds bilaterally, clear to auscultation and percussion. No rales, rhonchi or wheezes noted. No increased work of breathing, no retractions or nasal flaring. Abdomen/GI: Soft, non-tender, with normal bowel sounds. No distension or tympany. No guarding or rebound. No evidence of tenderness throughout. Back: No spinal tenderness. No costovertebral tenderness. Full range of motion. Skin: Warm, dry with normal turgor. Normal color with no rashes, no lesions, and no evidence of cellulitis. MS/ Extremity: Pulses equal, no cyanosis. Neurovascular intact. Full, normal range of motion. Neuro: Awake and alert, GCS 15, oriented to person, place, time, and situation. Cranial nerves II-XII grossly intact. Motor strength 5/5 in all extremities. Sensory grossly intact. Cerebellar exam normal. Normal gait. 11:03 Back: pain, that is very mild, normal spinal alignment noted, vertebral tenderness, is not appreciated, muscle spasm, is appreciated in the lumbar area, left low back and right low back. Vital Signs: 10:43 BP 119 / 60; Pulse 91; Resp 18 S; Temp 97.4(TE); Pulse Ox 98% on R/A; Weight 127.01 kg aa5 (R); Height 5 ft. 4 in. (162.56 cm) (R); Pain 9/10; 10:43 Body Mass Index 48.06 (127.01 kg, 162.56 cm) aa5 MDM: 10:48 Patient medically screened. il2 11:03 Differential diagnosis: Obesity Osteoarthritis sprain. Data reviewed: vital signs, ma2 nurses notes. Counseling: I had a detailed discussion with the patient and/or guardian regarding: the historical points, exam findings, and any diagnostic results supporting the discharge/admit diagnosis, the presence of at least one elevated blood pressure reading (>120/80) during this emergency department visit, the need for outpatient follow up. Response to treatment: the patient's symptoms have resolved after treatment. Administered Medications: 11:13 Drug: TORadol 30 mg Route: IM; Site: left gluteus; iw 11:25 Follow up: Response: No adverse reaction iw 11:13 Drug: Valium 5 mg Route: IM; Site: left ventrogluteal; iw 11:25 Follow up: Response: No adverse reaction iw Disposition: 08/23/19 11:05 Discharged to Home. Impression: Low back pain, Muscle spasm of back. - Condition is Stable. - Discharge Instructions: Back Pain, Adult. - Prescriptions for Tylenol- Codeine #3 300-30 mg Oral Tablet - take 2 tablet by ORAL route every 6 hours As needed; 30 tablet. Cyclobenzaprine 10 mg Oral Tablet - take 1 tablet by ORAL route every 8 hours As needed; 30 tablet. Tramadol 50 mg Oral Tablet - take 1 tablet by ORAL route every 8 hours as needed; 12 tablet. - Medication Reconciliation Form, Thank You Letter, Antibiotic Education, Prescription Opioid Use form. - Follow up: Private Physician; When: Tomorrow; Reason: Continuance of care. Signatures: Gita Ortiz RN RN Winnie Heath RN RN aa5 Chet Galvan MD MD ma2 Corrections: (The following items were deleted from the chart) 11:29 11:05 08/23/2019 11:05 Discharged to Home. Impression: Low back pain; Muscle spasm of iw back. Condition is Stable. Forms are Medication Reconciliation Form, Thank You Letter, Antibiotic Education, Prescription Opioid Use. Follow up: Private Physician; When: Tomorrow; Reason: Continuance of care. ma2
[2019-08-23] MEDS ORDERED: KETOROLAC 30 MG/ML INJ ONE (11:08)
[2019-08-23] MEDS ORDERED: DIAZEPAM 10 MG/2 ML INJ SYRINGE ONE (11:08)
[2019-08-23 11:44] VITALS: BP 119/60; TEMP 97.4; O2SAT 98
== END 2019-08-23 11:29 | disposition home or self-care (01) ==
LOC: ER 10:35
DX: M54.5 Low back pain (principal); M62.830 Muscle spasm of back
CPT/HCPCS: 96372; 99283; J3360

== ENCOUNTER 2019-12-24 19:20 | Emergency (ER) | payer BC ==
--- NOTE | 2019-12-24 20:29 | EDPHYS ---
Physician Documentation [facility] Name: Alisson Palmer Age: 49 yrs Sex: Female : 1970 Arrival Date: 12/24/2019 Time: 19:36 Bed 23 Private MD: Jefry Levin ED Physician Maco Seaman HPI: 12/23 22:26 This 49 yrs old Female presents to ER via Ambulatory with complaints of Rash. kb 22:26 The patient's rash thought to be caused by an unknown cause. The rash is located on the kb left arm and right arm. The rash can be described as erythematous, papular. Onset: The symptoms/episode began/occurred yesterday. Associated signs and symptoms: Pertinent positives: itching. Severity of symptoms: At their worst the symptoms were moderate in the emergency department the symptoms are unchanged. The patient has not experienced similar symptoms in the past. The patient has not recently seen a physician. Pt reports she woke up with a rash to left forearm yesterday, continued to itch throughout the day. Now it is on right forearm and is spreading. . 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 - Social history:: Smoking status: Patient/guardian denies using tobacco. ROS: 22:27 Constitutional: Negative for fever, chills, and weight loss, Neck: Negative for injury, kb pain, and swelling, Cardiovascular: Negative for chest pain, palpitations, and edema, Respiratory: Negative for shortness of breath, cough, wheezing, and pleuritic chest pain, Abdomen/GI: Negative for abdominal pain, nausea, vomiting, diarrhea, and constipation, Back: Negative for injury and pain, MS/Extremity: Negative for injury and deformity, Neuro: Negative for headache, weakness, numbness, tingling, and seizure. 22:27 Skin: Positive for rash, of the right arm and left arm. Exam: 22:25 Constitutional: This is a well developed, well nourished patient who is awake, alert, kb and in no acute distress. Head/Face: Normocephalic, atraumatic. ENT: Nares patent. No nasal discharge, no septal abnormalities noted. Tympanic membranes are normal and external auditory canals are clear. Oropharynx with no redness, swelling, or masses, exudates, or evidence of obstruction, uvula midline. Mucous membranes moist. Neck: Trachea midline, no thyromegaly or masses palpated, and no cervical lymphadenopathy. Supple, full range of motion without nuchal rigidity, or vertebral point tenderness. No Meningismus. Chest/axilla: Normal chest wall appearance and motion. Nontender with no deformity. No lesions are appreciated. Cardiovascular: Regular rate and rhythm with a normal S1 and S2. No gallops, murmurs, or rubs. Normal PMI, no JVD. No pulse deficits. Respiratory: Lungs have equal breath sounds bilaterally, clear to auscultation and percussion. No rales, rhonchi or wheezes noted. No increased work of breathing, no retractions or nasal flaring. Abdomen/GI: Soft, non-tender, with normal bowel sounds. No distension or tympany. No guarding or rebound. No evidence of tenderness throughout. MS/ Extremity: Pulses equal, no cyanosis. Neurovascular intact. Full, normal range of motion. Neuro: Awake and alert, GCS 15, oriented to person, place, time, and situation. Cranial nerves II-XII grossly intact. Motor strength 5/5 in all extremities. Sensory grossly intact. Cerebellar exam normal. Normal gait. 22:25 Skin: rash a moderate rash is noted, rash can be described as erythematous, papular, on the left arm and right arm. Vital Signs: 19:41 BP 135 / 83; Pulse 100; Resp 18; Temp 97.6; Pulse Ox 100% on R/A; Weight 122.47 kg (R); aj1 Height 5 ft. 4 in. (162.56 cm) (R); Pain 0/10; 19:41 Body Mass Index 46.34 (122.47 kg, 162.56 cm) aj1 MDM: 19:44 Patient medically screened. kb 22:25 Data reviewed: vital signs, nurses notes. Data interpreted: Pulse oximetry: on room air kb is 100 %. Interpretation: normal. Counseling: I had a detailed discussion with the patient and/or guardian regarding: the historical points, exam findings, and any diagnostic results supporting the discharge/admit diagnosis, the need for outpatient follow up, a family practitioner, to return to the emergency department if symptoms worsen or persist or if there are any questions or concerns that arise at home. Administered Medications: 20:40 Drug: predniSONE 40 mg Route: PO; rr5 20:42 Follow up: Response: Medication administered at discharge. rr5 20:40 Drug: Pepcid 20 mg Route: PO; rr5 20:42 Follow up: Response: Medication administered at discharge. rr5 Disposition: 12/24 03:27 Co-signature as Attending Physician, Maco Seaman MD I agree with the assessment and tw4 plan of care. Disposition: 12/24/19 20:28 Discharged to Home. Impression: Rash and other nonspecific skin eruption. - Condition is Stable. - Discharge Instructions: Insect Bite, [id number], Rash, [id number], Allergies, [id number]. - Prescriptions for Elimite 5 % Topical Cream - apply 1 application by TOPICAL route one time Wash after 12 hours.; 60 gram. Pepcid 20 mg Oral Tablet - take 1 tablet by ORAL route every 12 hours for 5 days; 10 tablet. Prednisone 20 mg Oral Tablet - take 1 tablet by ORAL route once daily for 5 days; 5 tablet. Bactrim DS 800- 160 mg Oral Tablet - take 1 tablet by ORAL route every 12 hours for 7 days; 14 tablet. - Medication Reconciliation Form, Thank You Letter, Antibiotic Education, Prescription Opioid Use form. - Follow up: Emergency Department; When: As needed; Reason: Worsening of condition. Follow up: Private Physician; When: 2 - 3 days; Reason: Recheck today's complaints, Continuance of care, Re-evaluation by your physician. Signatures: Gianna Santos, Dilia Villar RN RN aj1 Maco Seaman MD MD tw4 Marcial Watson RN RN rr5 Corrections: (The following items were deleted from the chart) 12/23 20:42 20:28 12/24/2019 20:28 Discharged to Home. Impression: Rash and other nonspecific skin rr5 eruption. Condition is Stable. Forms are Medication Reconciliation Form, Thank You Letter, Antibiotic Education, Prescription Opioid Use. Follow up: Emergency Department; When: As needed; Reason: Worsening of condition. Follow up: Private Physician; When: 2 - 3 days; Reason: Recheck today's complaints, Continuance of care, Re-evaluation by your physician. kb
--- NOTE | 2019-12-24 20:29 | ER ---
Nurse's Notes [facility] Name: Alisson Palmer Age: 49 yrs Sex: Female : 1970 Arrival Date: 12/24/2019 Time: 19:36 Bed 23 Private MD: Jefry Levin Diagnosis: Rash and other nonspecific skin eruption Presentation: 12/23 19:40 Chief complaint: Patient states: Itchy rash that started on her arms yesterday and has aj1 kept spreading since then. States it has spread to her back, chest and thigh. Coronavirus screen: The patient has NOT traveled to a country currently being monitored by the CDC within the last 14 days. Ebola Screen: Patient denies travel to an Ebola-affected area in the 21 days before illness onset. Initial Sepsis Screen: Does the patient meet any 2 criteria? No. Patient's initial sepsis screen is negative. Does the patient have a suspected source of infection? No. Patient's initial sepsis screen is negative. Risk Assessment: Do you want to hurt yourself or someone else? Patient reports no desire to harm self or others. 19:40 Method Of Arrival: Ambulatory aj1 19:40 Acuity: IRIS 4 aj1 19:40 Onset of symptoms was December 24, 2019. rr5 Triage Assessment: 19:41 General: Appears in no apparent distress. comfortable, Behavior is calm, cooperative, aj1 appropriate for age. Pain: Denies pain. Neuro: Level of Consciousness is awake, alert, obeys commands, Oriented to person, place, time, situation. Cardiovascular: Patient's skin is warm and dry. Respiratory: Airway is patent Respiratory effort is even, unlabored, Respiratory pattern is regular, symmetrical. 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 - Social history:: Smoking status: Patient/guardian denies using tobacco. Screenin:56 Abuse screen: Denies threats or abuse. Denies injuries from another. Nutritional rr5 screening: No deficits noted. Tuberculosis screening: No symptoms or risk factors identified. Fall Risk None identified. Total Carrillo Fall Scale indicates No Risk (0-24 pts). Assessment: 19:45 General: Appears in no apparent distress. uncomfortable, Behavior is calm, cooperative, rr5 appropriate for age. 19:45 Pain: Denies pain. Neuro: Level of Consciousness is awake, alert, obeys commands, rr5 Oriented to person, place, time, situation. Cardiovascular: Capillary refill < 3 seconds Patient's skin is warm and dry. Respiratory: Airway is patent Respiratory effort is even, unlabored, Respiratory pattern is regular, symmetrical. GI: No signs and/or symptoms were reported involving the gastrointestinal system. : No signs and/or symptoms were reported regarding the genitourinary system. EENT: No signs and/or symptoms were reported regarding the EENT system. Derm: Rash noted that is itchy, papular, red, raised, on back, left hand, right arm, left arm, left leg and neck. Musculoskeletal: Circulation, motion, and sensation intact. Capillary refill < 3 seconds. 20:40 Reassessment: Patient appears in no apparent distress at this time. Patient is alert, rr5 oriented x 3, equal unlabored respirations, skin warm/dry/pink. discharge instruction given and explained without complaints made. Vital Signs: 19:41 BP 135 / 83; Pulse 100; Resp 18; Temp 97.6; Pulse Ox 100% on R/A; Weight 122.47 kg (R); aj1 Height 5 ft. 4 in. (162.56 cm) (R); Pain 0/10; 19:41 Body Mass Index 46.34 (122.47 kg, 162.56 cm) aj1 ED Course: 19:36 Patient arrived in ED. es 19:36 Jefry Levin MD is Private Physician. es 19:41 Triage completed. aj1 19:41 Arm band placed on Patient placed in an exam room. aj1 19:44 [facility]C [facility]. kb 19:44 Maco Seaman MD is Attending Physician. kb 19:44 Marcial Watson, RN is Primary Nurse. rr5 19:57 Patient has correct armband on for positive identification. Bed in low position. Call rr5 light in reach. Side rails up X2. Pulse ox on. NIBP on. 20:41 No provider procedures requiring assistance completed. Patient did not have IV access rr5 during this emergency room visit. Administered Medications: 20:40 Drug: predniSONE 40 mg Route: PO; rr5 20:42 Follow up: Response: Medication administered at discharge. rr5 20:40 Drug: Pepcid 20 mg Route: PO; rr5 20:42 Follow up: Response: Medication administered at discharge. rr5 Outcome: 20:28 Discharge ordered by MD. kb 20:41 Discharged to home ambulatory. rr5 20:41 Condition: stable 20:41 Discharge instructions given to patient, Instructed on discharge instructions, follow up and referral plans. medication usage, Demonstrated understanding of instructions, follow-up care, medications, Prescriptions given X 4. 20:42 Patient left the ED. rr5 Signatures: Gianna Santos, CROSSING TENDER-C CROSSING TENDER-CkDilia Granda, RN RN aj1 Riri Duong Raymond, RN RN rr5
[2019-12-24] MEDS ORDERED: FAMOTIDINE 20 MG TAB ONE (20:41)
[2019-12-24] MEDS ORDERED: predniSONE 20 MG TAB ONE (20:41)
[2019-12-24 20:48] VITALS: BP 135/83; TEMP 97.6; O2SAT 100
== END 2019-12-24 20:42 | disposition home or self-care (01) ==
LOC: ER 19:20
DX: R21 Rash and other nonspecific skin eruption (principal); I10 Essential (primary) hypertension; E11.9 Type 2 diabetes mellitus without complications; E78.5 Hyperlipidemia, unspecified
CPT/HCPCS: 99283; J7512

== ENCOUNTER 2019-12-30 | Emergency (ER) | payer BC ==
--- NOTE | 2019-12-30 01:43 | EDPHYS ---
Physician Documentation [facility] Name: Alisson Palmer Age: 49 yrs Sex: Female : 1970 Arrival Date: 12/30/2019 Time: 01:08 Bed 13 Private MD: ED Physician Jigar Samaniego HPI: 12/29 01:34 This 49 yrs old Female presents to ER via Ambulatory with complaints of taj Medical Clearance. 01:34 The patient or guardian reports stuffy nose, no fever, no sob. Onset: The taj symptoms/episode began/occurred 1 day(s) ago. Severity of symptoms: At their worst the symptoms were mild, in the emergency department the symptoms are unchanged. Modifying factors: The symptoms are alleviated by nothing, the symptoms are aggravated by nothing. Associated signs and symptoms: The patient has no apparent associated signs or symptoms. The patient has not experienced similar symptoms in the past. 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 - Hysterectomy bb Historical: - Allergies: 01:24 No Known Allergies; bb - Home Meds: 01:24 atorvastatin 40 mg Oral tab 1 tab once daily [Active]; ibuprofen 800 mg Oral tab 1 tab bb 3 times per day for Pain [Active]; lisinopril 10 mg Oral tab 1 tab once daily [Active]; metformin 1,000 mg Oral tr24 1 tab once daily [Active]; valacyclovir 1 gram Oral tab 2 tab 2 times per day [Active]; - PMHx: 01:24 Diabetes - NIDDM; Hyperlipidemia; Hypertension; bb - PSHx: 01:24 Hysterectomy; bb - Immunization history:: Adult Immunizations up to date, Last tetanus immunization: up to date Flu vaccine is not up to date. - Social history:: Smoking status: Patient denies any tobacco usage or history of. - Family history:: not pertinent. ROS: 01:34 Constitutional: Negative for fever, chills, and weight loss, Eyes: Negative for injury, taj pain, redness, and discharge, Neck: Negative for injury, pain, and swelling, Cardiovascular: Negative for chest pain, palpitations, and edema, Respiratory: Negative for shortness of breath, cough, wheezing, and pleuritic chest pain, Abdomen/GI: Negative for abdominal pain, nausea, vomiting, diarrhea, and constipation, Back: Negative for injury and pain, : Negative for injury, bleeding, discharge, and swelling, MS/Extremity: Negative for injury and deformity, Skin: Negative for injury, rash, and discoloration, Neuro: Negative for headache, weakness, numbness, tingling, and seizure, Psych: Negative for depression, anxiety, suicide ideation, homicidal ideation, and hallucinations, Allergy/Immunology: Negative for hives, rash, and allergies, Endocrine: Negative for neck swelling, polydipsia, polyuria, polyphagia, and marked weight changes, Hematologic/Lymphatic: Negative for swollen nodes, abnormal bleeding, and unusual bruising. :34 ENT: Positive for rhinorrhea, sinus congestion. Exam: :34 Constitutional: This is a well developed, well nourished patient who is awake, alert, taj and in no acute distress. Head/Face: Normocephalic, atraumatic. Eyes: Pupils equal round and reactive to light, extra-ocular motions intact. Lids and lashes normal. Conjunctiva and sclera are non-icteric and not injected. Cornea within normal limits. Periorbital areas with no swelling, redness, or edema. Neck: Trachea midline, no thyromegaly or masses palpated, and no cervical lymphadenopathy. Supple, full range of motion without nuchal rigidity, or vertebral point tenderness. No Meningismus. Chest/axilla: Normal chest wall appearance and motion. Nontender with no deformity. No lesions are appreciated. Cardiovascular: Regular rate and rhythm with a normal S1 and S2. No gallops, murmurs, or rubs. Normal PMI, no JVD. No pulse deficits. Respiratory: Lungs have equal breath sounds bilaterally, clear to auscultation and percussion. No rales, rhonchi or wheezes noted. No increased work of breathing, no retractions or nasal flaring. Abdomen/GI: Soft, non-tender, with normal bowel sounds. No distension or tympany. No guarding or rebound. No evidence of tenderness throughout. Back: No spinal tenderness. No costovertebral tenderness. Full range of motion. Skin: Warm, dry with normal turgor. Normal color with no rashes, no lesions, and no evidence of cellulitis. MS/ Extremity: Pulses equal, no cyanosis. Neurovascular intact. Full, normal range of motion. Neuro: Awake and alert, GCS 15, oriented to person, place, time, and situation. Cranial nerves II-XII grossly intact. Motor strength 5/5 in all extremities. Sensory grossly intact. Cerebellar exam normal. Normal gait. Psych: Awake, alert, with orientation to person, place and time. Behavior, mood, and affect are within normal limits. 01:34 ENT: Nose: nasal drainage, that is minimal, and is seen coming from both nares, that is clear. Vital Signs: 01:19 BP 156 / 96; Pulse 99; Resp 16 S; Temp 98.5(O); Pulse Ox 99% on R/A; Weight 122.47 kg bb (R); Height 5 ft. 4 in. (162.56 cm) (R); Pain 0/10; 01:19 Body Mass Index 46.34 (122.47 kg, 162.56 cm) bb MDM: 01:10 Patient medically screened. taj Administered Medications: No medications were administered Disposition: 12/30/19 01:42 Discharged to Home. Impression: Acute upper respiratory infection, unspecified. - Condition is Stable. - Discharge Instructions: Upper Respiratory Infection, Adult, Cool Mist Vaporizer. - Prescriptions for Saba- D 12 Hour 60-120 mg Oral Tablet Sustained Release 12 hr - take 1 tablet by ORAL route every 12 hours As needed; 20 tablet. - Work release form, Medication Reconciliation Form, Thank You Letter, Antibiotic Education, Prescription Opioid Use form. - Follow up: Private Physician; When: 2 - 3 days; Reason: Recheck today's complaints, Continuance of care, Re-evaluation by your physician. - Problem is new. - Symptoms have improved. Signatures: Jigar Samaniego MD MD cha Ballard, Brenda, RN RN Champ Marrero, RN RN rv Corrections: (The following items were deleted from the chart) 02:15 01:42 12/30/2019 01:42 Discharged to Home. Impression: Acute upper respiratory rv infection, unspecified. Condition is Stable. Forms are Medication Reconciliation Form, Thank You Letter, Antibiotic Education, Prescription Opioid Use. Follow up: Private Physician; When: 2 - 3 days; Reason: Recheck today's complaints, Continuance of care, Re-evaluation by your physician. Problem is new. Symptoms have improved. taj
--- NOTE | 2019-12-30 01:43 | ER ---
Nurse's Notes [facility] Name: Alisson Palmer Age: 49 yrs Sex: Female : 1970 Arrival Date: 12/30/2019 Time: 01:08 Bed 13 Private MD: Diagnosis: Acute upper respiratory infection, unspecified Presentation: 12/29 01:19 Chief complaint: Patient states: she was at work tonight with sniffles and dry cough bb and her coworkers were making her uncomfortable so she left and came her to get checked. Coronavirus screen: The patient has NOT traveled to a country currently being monitored by the [facility] within the last 14 days. Proceed with normal triage procedures. Ebola Screen: No symptoms or risks identified at this time. Initial Sepsis Screen: Does the patient meet any 2 criteria? No. Patient's initial sepsis screen is negative. Does the patient have a suspected source of infection? No. Patient's initial sepsis screen is negative. Risk Assessment: Do you want to hurt yourself or someone else? Patient reports no desire to harm self or others. Onset of symptoms was December 30, 2019. 01:19 Method Of Arrival: Ambulatory bb 01:19 Acuity: IRIS 4 bb Triage Assessment: 01:24 General: Appears in no apparent distress. Behavior is calm, cooperative. Pain: Denies bb pain. Neuro: Level of Consciousness is awake, alert, obeys commands, Oriented to person, place, time, situation. Cardiovascular: No deficits noted. Respiratory: Respiratory effort is even, unlabored, Respiratory pattern is regular. 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 - Hysterectomy bb Historical: - Allergies: :24 No Known Allergies; bb - Home Meds: :24 atorvastatin 40 mg Oral tab 1 tab once daily [Active]; ibuprofen 800 mg Oral tab 1 tab bb 3 times per day for Pain [Active]; lisinopril 10 mg Oral tab 1 tab once daily [Active]; metformin 1,000 mg Oral tr24 1 tab once daily [Active]; valacyclovir 1 gram Oral tab 2 tab 2 times per day [Active]; - PMHx: 01:24 Diabetes - NIDDM; Hyperlipidemia; Hypertension; bb - PSHx: 01:24 Hysterectomy; bb - Immunization history:: Adult Immunizations up to date, Last tetanus immunization: up to date Flu vaccine is not up to date. - Social history:: Smoking status: Patient denies any tobacco usage or history of. - Family history:: not pertinent. Screenin:14 Abuse screen: Denies threats or abuse. Denies injuries from another. Nutritional rv screening: No deficits noted. Tuberculosis screening: No symptoms or risk factors identified. Fall Risk None identified. Assessment: 01:45 General: Appears in no apparent distress. Pain: Denies pain. rv 01:45 Neuro: Level of Consciousness is awake, alert, obeys commands, Oriented to person, rv place, time, situation. Cardiovascular: Patient's skin is warm and dry. Respiratory: Airway is patent Breath sounds are clear bilaterally. GI: No signs and/or symptoms were reported involving the gastrointestinal system. Vital Signs: 01:19 BP 156 / 96; Pulse 99; Resp 16 S; Temp 98.5(O); Pulse Ox 99% on R/A; Weight 122.47 kg bb (R); Height 5 ft. 4 in. (162.56 cm) (R); Pain 0/10; 01:19 Body Mass Index 46.34 (122.47 kg, 162.56 cm) ED Course: 01:08 Patient arrived in ED. cl3 01:10 Jigar Samaniego MD is Attending Physician. taj 01:22 Triage completed. bb 01:24 Arm band placed on Patient placed in an exam room, on a stretcher, on pulse oximetry. bb 01:26 Champ Jane, OZ is Primary Nurse. rv 01:45 Patient has correct armband on for positive identification. Pulse ox on. NIBP on. rv 02:15 No provider procedures requiring assistance completed. Patient did not have IV access rv during this emergency room visit. Administered Medications: No medications were administered Outcome: 01:42 Discharge ordered by . taj 02:15 Discharged to home ambulatory. rv 02:15 Condition: good 02:15 Discharge instructions given to patient, Instructed on discharge instructions, follow up and referral plans. medication usage, Demonstrated understanding of instructions, follow-up care, medications, Prescriptions given X 1. 02:15 Patient left the ED. rv Signatures: Jigar Samaniego MD MD cha Ballard, Brenda RN RN Champ Marrero, OZ RN Analy Hallman cl3
== END 2019-12-30 02:15 | disposition home or self-care (01) ==
CPT/HCPCS: 99283

== ENCOUNTER 2022-01-01 10:18 | Emergency (ER) | payer BC ==
--- OUTSIDE RECORDS SUMMARY | 2022-01-01 10:20 | XMS REPORT | Continuity of Care Document ---
:1970 Author Organization [facility] t Address [address] [place] [address] Care Team Providers Name Role Phone RADHA Attending Clinician Unavailable LAB90 Attending Clinician Unavailable TAWANA Attending Clinician Unavailable Rodrigo THAKUR Attending Clinician Unavailable LAB08 Attending Clinician Unavailable Tawana SPANN-C Attending Clinician CARMELA HOLT Attending Clinician Unavailable Payers Payer Name Policy Type Policy Number Effective Date Expiration Date [facility] 2 [id number] 2020 00:00:00 Problems Condition Condition Condition Status Onset Resolution Last Treating Co mments Source Name Details Category Date Date Treatment Clinician Date Type 2 Type 2 Disease Active 2020-10 Janis diabetes diabetes 0-14 Seybol d mellitus mellitus 00:00: without without 00 complicati complicati on on Insomnia Insomnia Disease Active 2020-10 Kelse y 0-14 Seybold 00:00: 00 Overweight Overweight Disease Active 2020-10 K elsey 0-14 Seybold 00:00: 00 Depression Depression Disease Active 2020-10 K elsey 0-14 Seybold 00:00: 00 Hypertensi Hypertensi Disease Active 2020-10 K elsey on on 0-14 Seybold 00:00: 00 Sciatic Sciatic Disease Active 2020-10 Janis nerve nerve 0-14 Seybold pain, pain, 00:00: right - right - 00 Not Not Controlled Controlled Vitamin D Vitamin D Disease Active 2020-10 George sey deficiency deficiency 0-14 Se ybold 00:00: 00 Acute pain Acute pain Disease Active 2020-10 Overview : Janis of right of right 0-14 Formattin Sey bold knee knee 00:00: g of this 00 note might be different from the original. Fall in Jun 2021 Hyperlipid Hyperlipid Disease Active 2020-10 Tawana dumont emia emia 0-14 Seybold 00:00: 00 Unable to Unable to Disease Active 2020-10 George herring lose lose 0-14 Seybold weight weight 00:00: 00 Allergies, Adverse Reactions, Alerts This patient has no known allergies or adverse reactions. Social History Social Habit Start Date Stop Date Quantity Comments Source History of Cigarette Smoker Janisnima jimenezsera tobacco use Exposure to Not sure Janis Sethelmaol mel SARS-CoV-2 (event) Sex Ass[birth year] Janis campbell 00:00:00 00:00:00 Smoking Status Start Date Stop Date Source Ex-smoker 2021-07-25 00:00:00 2021-07-25 00:00:00 Janis jimenezsera Medications Ordered Filled Start Stop Current Ordering Indication Dosage Frequency Signature Comments Components Source Medication Medication Date Date Medication? Clinician (SIG) Name Name Ibuprofen 2020-10- 800mg Q6H Take 800 Ke lsey 800 MG oral 0-13 10-13 mg by Seybol d Tablet 15:14: 00:00 mouth 48 :00 every 6 hours as needed for pain Metformin 2020-10 Yes [id number] 1000mg Take 1 Janis HCl 1000 MG 0-13 tablet Seybol d oral Tablet 00:00: (1,000 mg 00 total) by mouth 2 times daily (with meals) Sertraline 2020-10 Yes [id number] 50mg Take 1 K elsey HCl 50 MG 0-13 tablet (50 Seyb old oral Tablet 00:00: mg total) 00 by mouth daily Telmisartan 2020-10 Yes [id number] 40mg Take 1 Janis 40 MG oral 0-13 tablet (40 Sey bold Tablet 00:00: mg total) 00 by mouth daily Ibuprofen 2020-10 Yes [id number] 800mg Q6H Take 1 K elsey 800 MG oral 0-13 tablet Seybol d Tablet 00:00: (800 mg 00 total) by mouth every 6 hours as needed for pain Gabapentin 2020-10 Yes [id number] 300mg Take 1 Janis 300 MG oral 0-13 capsule Seybo ld Capsule 00:00: (300 mg 00 total) by mouth 3 times daily Trazodone 2020-10 Yes [id number] 50mg Take 1 K elsey HCl 50 MG 0-13 tablet (50 Seyb old oral Tablet 00:00: mg total) 00 by mouth nightly Empaglifloz 2020-10 Yes [id number] 1{tbl} Take 1 Janis in 0-08 tablet by Seybold (Jardiance) 00:00: mouth 10 MG oral 00 daily Tablet Valacyclovi 2020-10 Yes [id number] 1000mg Take 1 Janis r HCl 1 g 0-08 tablet Seybold oral Tablet 00:00: (1,000 mg 00 total) by mouth 3 times daily Rosuvastati 2020-10 Yes 40mg Take 1 Kelly ey n Calcium 0-08 tablet (40 Seyb old 40 MG oral 00:00: mg total) Tablet 00 by mouth daily Metformin 2020-10- No [id number] 1000mg Take 1 Janis HCl 1000 MG 0-08 10-13 tablet Seybo ld oral Tablet 00:00: 00:00 (1,000 mg 00 :00 total) by mouth 2 times daily (with meals) Lisinopril 2020-10 No [id number] 10mg Take 1 Janis 10 MG oral 0-08 10-13 tablet (10 Se ybold Tablet 00:00: 00:00 mg total) 00 :00 by mouth daily Levocetiriz Yes 5mg Take 1 Kelly ey ine 4-02 tablet (5 Seybold Dihydrochlo 00:00: mg total) ride 5 MG 00 by mouth oral Tablet every day at 5:00 PM Rosuvastati Yes 20mg Take 1 Kelly ey n Calcium 4-02 tablet (20 Seyb old 20 MG oral 00:00: mg total) Tablet 00 by mouth daily Azelastine Yes 1{spray Use 1 George sey HCl 137 4-02 } spray in Seybold MCG/SPRAY 00:00: each nasal 00 nostril 2 Solution times daily Telmisartan 2020- No 40mg Take 1 George sey 40 MG oral 4-02 10-13 tablet (40 Se ybold Tablet 00:00: 00:00 mg total) 00 :00 by mouth daily Sertraline 50mg Take 1 Kelly jimenez HCl 50 MG 01-12 tablet (50 Sey bold oral Tablet 00:00: 00:00 mg total) 00 :00 by mouth daily Immunizations Ordered Immunization Filled Immunization Date Status Commen ts Source Name Name Tdap- (Boostrix, 2018-12-02 Completed Janis oliveros Adacel) 00:00:00 Influenza Virus 2016-08-01 Completed Janis Mauricio ybold Vaccine, age 6 00:00:00 months and up Td- Tetanus & 2011-08-21 Completed Janis Pride old Diphtheria Vaccine 00:00:00 (age 7+ years) Vital Signs Vital Name Observation Time Observation Value Comments Source Systolic blood pressure 2021-07-25 18:47:00 138 mm[Hg] Janis Rolly Diastolic blood 2021-07-25 18:47:00 86 mm[Hg] Kelse y Seybold pressure Heart rate 2021-07-25 18:47:00 111 /min Janis Rodrigo domo Body temperature 2021-07-25 18:47:00 36.56 Emily Kelly tony Mauricioybrosi Respiratory rate 2021-07-25 18:47:00 16 /min Kelly tony Mauricioybrosi Body height 2021-07-25 18:47:00 162.6 cm Janisnima jimenezsera Body weight 2021-07-25 18:47:00 131.09 kg Janisnima jimeneztoritoby BMI 2021-07-25 18:47:00 49.61 kg/m2 Janis oliveros Procedures This patient has no known procedures. Encounters Start End Encounter Admission Attending Care Care Encounter Source Date/Time Date/Time Type Type Clinicians Facility Department ID 2022-02-07 2022-02-07 Outpatient JANIS GARCIA [id number] Janis 14:00:00 14:00:00 STERLING Seybol d 2022-02-05 2022-02-05 Outpatient JANIS GARCIA [id number] Janis 14:00:00 14:00:00 STERLING Seybol d 2022-01-31 2022-01-31 Outpatient JANIS GARCIA [id number] Janis 11:30:00 11:30:00 STERLING Seybol d 2022-01-24 2022-01-24 Outpatient MAQBOOL JANIS ARTIS [id number] Janis 14:00:00 14:00:00 STERLING Seybol d 2022-01-01 2022-01-01 Outpatient LAB90 JANIS ARTIS [id number] Janis 09:30:00 09:30:00 Seybol d 2022-01-01 2022-01-01 Outpatient JANIS GILLIAM [id number] Janis 08:30:00 08:30:00 JENNIFER Seybol d 2021-12-31 2021-12-31 Outpatient BONE-ONEILLJANIS [id number] Janis 00:00:00 00:00:00 VIKASH Seybol d 2021-12-17 2021-12-17 Outpatient JANIS GILLIAM [id number] Janis 00:00:00 00:00:00 JENNIFER Seybol d 2021-10-30 2021-10-30 Outpatient JANIS GILLIAM [id number] Janis 00:00:00 00:00:00 JENNIFER Seybol d 2021-08-18 2021-08-18 Outpatient JANIS GILLIAM [id number] Janis 00:00:00 00:00:00 JENNIFER Seybol d 2021-08-10 2021-08-10 Outpatient JANIS GILLIAM [id number] Janis 00:00:00 00:00:00 JENNIFER Seybol d 2021-08-09 2021-08-09 Outpatient LAB08 JANIS ARTIS [id number] Janis 07:50:00 07:50:00 Seybol d 2021-07-25 2021-07-25 Office Tawana Muse [id number] Janis 13:46:52 14:16:52 Visit Jennifer Santos [id number] Se shannan [id number] 2021-07-12 2021-07-12 Outpatient JANIS HOLT [id number] Janis 15:30:00 15:30:00 ELMO Seybol mel Results This patient has no known results.
[2022-01-01] MEDS ORDERED: dexAMETHasone 10 MG/ML VIAL ONE (10:57)
[2022-01-01] MEDS ORDERED: METOCLOPRAMIDE 10 MG/2mL INJ ONE (10:57)
[2022-01-01] MEDS ORDERED: NA CHLORIDE 0.9% 1,000 ML ONE (10:58)
[2022-01-01 11:11] LABS: Absolute Lymphocytes (CBC) 1.8 K/uL (0.7-4.9); Hematocrit 43.6 % (36.0-45.0); Lymphocytes % 22.1 % (15.3-44.8); MPV 8.4 fL (7.6-11.3)
[2022-01-01 11:26] LABS: Potassium 4.3 mmol/L (3.5-5.1)
--- NOTE | 2022-01-01 11:29 | RAD REPORT ---
EXAM DESCRIPTION: CT - Head Brain Wo Cont - 01/01/2022 11:07 am CLINICAL HISTORY: HEADACHE, nausea COMPARISON: No comparisons TECHNIQUE: Axial 5 mm thick images of the head were obtained without IV contrast. All CT scans are performed using dose optimization technique as appropriate and may include automated exposure control or mA/KV adjustment according to patient size. FINDINGS: No intracranial hemorrhage, mass, edema or shift of mid-line structures. No acute infarcti on changes seen. No abnormal extra-axial fluid collections. Ventricles are normal. Physiologic calci fications are present Mastoid air cells and visualized portions of the paranasal sinuses are clear. No acute bony findings. No globe or orbital content abnormality evident. IMPRESSION: Negative non-contrast CT head examination.
--- NOTE | 2022-01-01 12:11 | ER ---
Nurse's Notes [facility] Name: Alisson Palmer Age: 51 yrs Sex: Female : 1970 Arrival Date: 01/01/2022 Time: 10:20 Bed 25 Private MD: Diagnosis: Headache Presentation: 01/01 10:25 Chief complaint: Patient states: PCP referred to ED for head aches, nausea, dizziness, otero possible allergic reaction. Coronavirus screen: Vaccine status: Patient reports being unvaccinated. Ebola Screen: Patient denies travel to an Ebola-affected area in the 21 days before illness onset. Onset: The symptoms/episode began/occurred gradually, 3 month(s) ago. Anaphylaxis evaluation, no signs or symptoms of anaphylaxis were noted. Initial Sepsis Screen: Does the patient meet any 2 criteria? No. Patient's initial sepsis screen is negative. Does the patient have a suspected source of infection? No. Patient's initial sepsis screen is negative. Risk Assessment: Do you want to hurt yourself or someone else? Patient reports no desire to harm self or others. Onset of symptoms was January 01, 2022. 10:25 Method Of Arrival: Ambulatory toero 10:25 Acuity: IRIS 3 otero Triage Assessment: 10:28 General: Appears in no apparent distress. Behavior is calm, cooperative. Pain: otero Complains of pain in face. Historical: - Allergies: 10: No Known Allergies; otero - Home Meds: 10: atorvastatin 40 mg Oral tab 1 tab once daily [Active]; telmisartan 40 mg oral tab 1 tab otero once daily [Active]; metformin 1,000 mg Oral tr24 1 tab 2 times per day [Active]; ibuprofen 800 mg Oral tab 1 tab 3 times per day for Pain [Active]; Jardiance 25 mg oral tab 2 tab once daily [Active]; valacyclovir 1 gram Oral tab 2 tab 2 times per day [Active]; rosuvastatin 40 mg oral tab 1 tab once daily [Active]; sertraline 50 mg oral tab 1 tab once daily [Active]; trazodone 50 mg Oral tab 1 tab once daily [Active]; gabapentin 300 mg oral tab [Active]; - PMHx: 10:28 Diabetes - NIDDM; Hyperlipidemia; Hypertension; Depressive disorder; otero - PSHx: 10:28 None; otero - Immunization history:: Adult Immunizations up to date. - Social history:: Smoking status: Patient denies any tobacco usage or history of. - Family history:: not pertinent. - Hospitalizations: : No recent hospitalization is reported. Screenin:39 Abuse screen: Denies threats or abuse. Denies injuries from another. Nutritional ab2 screening: No deficits noted. Tuberculosis screening: No symptoms or risk factors identified. Fall Risk None identified. Assessment: 11:37 General: Appears in no apparent distress. comfortable, Behavior is calm, cooperative, ab2 appropriate for age. Pain: Complains of pain in head. Neuro: Level of Consciousness is awake, alert, obeys commands, Oriented to person, place, time, situation, Appropriate for age Sorting Machine Attendant are equal bilaterally Moves all extremities. Gait is steady, Speech is normal, Facial symmetry appears normal, Reports headache. Cardiovascular: No deficits noted. Denies chest pain, shortness of breath, Heart tones S1 S2 present Patient's skin is warm and dry. Chest pain is denied. Respiratory: No deficits noted. Airway is patent Respiratory effort is even, unlabored, Respiratory pattern is regular, symmetrical, Breath sounds are clear bilaterally. Denies cough, shortness of breath. GI: No deficits noted. Abdomen is round non-distended, Bowel sounds present X 4 quads. Reports nausea. : No deficits noted. No signs and/or symptoms were reported regarding the genitourinary system. EENT: No deficits noted. No signs and/or symptoms were reported regarding the EENT system. Derm: No deficits noted. Skin is intact, is healthy with good turgor, Skin is pink, warm \T\ dry. Musculoskeletal: No deficits noted. No signs and/or symptoms reported regarding the musculoskeletal system. Vital Signs: 10:25 BP 151 / 90; Pulse 18; Resp 86; Temp 97.3(O); Pulse Ox 98% ; Weight 133.36 kg; Height 5 otero ft. 4 in. (162.56 cm); 11:51 BP 136 / 99; Pulse 81; Resp 16; Pulse Ox 98% on R/A; ab2 12:20 BP 127 / 79; Pulse 83; Resp 17; Pulse Ox 98% on R/A; ab2 10:25 Body Mass Index 50.46 (133.36 kg, 162.56 cm) otero [place] Coma Score: 12:10 Eye Response: spontaneous(4). Verbal Response: oriented(5). Motor Response: obeys rn commands(6). Total: 15. ED Course: 10:20 Patient arrived in ED. ds1 10:28 Triage completed. otero 10:36 Bubba Stephens MD is Attending Physician. rn 10:52 Jayson Casanova is Primary Nurse. ab2 11:00 Inserted saline lock: 20 gauge in left antecubital area, using aseptic technique. Blood ab2 collected. 11:07 CT Head Brain wo Cont In Process Unspecified. EDMS 11:12 Basic Metabolic Panel Sent. ab2 11:12 CBC with Diff Sent. ab2 11:12 [place] Screen Profile Sent. ab2 11:39 No provider procedures requiring assistance completed. ab2 11:39 Arm band placed on right wrist. ab2 11:39 Patient has correct armband on for positive identification. Bed in low position. Call ab2 light in reach. Side rails up X2. 12:11 Donavon Molina MD is Referral Physician. rn 12:21 IV discontinued, intact, bleeding controlled, No redness/swelling at site. Pressure ab2 dressing applied. Administered Medications: 11:12 Drug: NS 0.9% 1000 ml Route: IV; Rate: 1000 ml; Site: left antecubital; ab2 12:12 Follow up: IV Status: Completed infusion ab2 11:12 Drug: Reglan (metoCLOPramide) 10 mg Route: IVP; Site: left antecubital; ab2 11:50 Follow up: Response: No adverse reaction ab2 11:12 Drug: Decadron - Dexamethasone 10 mg Route: IVP; Site: right antecubital; ab2 11:50 Follow up: Response: No adverse reaction ab2 Outcome: 12:11 Discharge ordered by . rn 12:21 Discharged to home ambulatory. ab2 12:21 Condition: good 12:21 Discharge instructions given to patient, Instructed on discharge instructions, follow up and referral plans. Demonstrated understanding of instructions, follow-up care. 12:21 Patient left the ED. ab2 Signatures: Dispatcher [employer] [facility] Cristal Francis ds1 Bubba Stephens MD MD rn Au-StagerМарина RN RN ha Bleininger, Alexis ab2
--- NOTE | 2022-01-01 12:11 | EDPHYS ---
Physician Documentation [facility] Name: Alisson Palmer Age: 51 yrs Sex: Female : 1970 Arrival Date: 01/01/2022 Time: 10:20 Bed 25 Private MD: ED Physician Bubba Stephens HPI: 01/01 10:58 This 51 yrs old Female presents to ER via Ambulatory with complaints of headache. rn 10:58 The patient complains of pain to the top of head. The patient describes the headache as rn constant. Onset: The symptoms/episode began/occurred 3 month(s) ago. Associated signs and symptoms: Pertinent positives: nausea, Pertinent negatives: altered mental status, fever, neck stiffness, paresthesias, Photophobia vision changes, vision loss, weakness. Severity of symptoms: At its worst the pain was moderate, in the emergency department the pain is unchanged. The symptoms are alleviated by nothing. the symptoms are aggravated by nothing. The patient has not experienced similar symptoms in the past. The patient has been recently seen by a physician:. Sent here today by PCP for evaluation of headache, present for 3 months, no injury or trauma, no fever, no neck stiffness, no focal neuro deficit. Seen by PCP today, given sumatriptan, led to nausea and vomiting, no syncope. Now feels better. Glucose was normal at clinic. . Historical: - Allergies: 10: No Known Allergies; otero - Home Meds: : atorvastatin 40 mg Oral tab 1 tab once daily [Active]; telmisartan 40 mg oral tab 1 tab otero once daily [Active]; metformin 1,000 mg Oral tr24 1 tab 2 times per day [Active]; ibuprofen 800 mg Oral tab 1 tab 3 times per day for Pain [Active]; Jardiance 25 mg oral tab 2 tab once daily [Active]; valacyclovir 1 gram Oral tab 2 tab 2 times per day [Active]; rosuvastatin 40 mg oral tab 1 tab once daily [Active]; sertraline 50 mg oral tab 1 tab once daily [Active]; trazodone 50 mg Oral tab 1 tab once daily [Active]; gabapentin 300 mg oral tab [Active]; - PMHx: 10:28 Diabetes - NIDDM; Hyperlipidemia; Hypertension; Depressive disorder; otero - PSHx: 10: None; otero - Immunization history:: Adult Immunizations up to date. - Social history:: Smoking status: Patient denies any tobacco usage or history of. - Family history:: not pertinent. - Hospitalizations: : No recent hospitalization is reported. ROS: 10:58 Constitutional: Negative for fever, chills, and weight loss, Eyes: Negative for injury, rn pain, redness, and discharge, ENT: Negative for injury, pain, and discharge, Neck: Negative for injury, and swelling, Cardiovascular: Negative for chest pain, palpitations, and edema, Respiratory: Negative for shortness of breath, cough, wheezing, and pleuritic chest pain, Abdomen/GI: Negative for abdominal pain, diarrhea, and constipation, Back: Negative for injury and pain, : Negative for injury, bleeding, discharge, and swelling, MS/Extremity: Negative for injury and deformity, Skin: Negative for injury, rash, and discoloration, Neuro: Negative for weakness, numbness, tingling, and seizure. Exam: 10:58 Constitutional: This is a well developed, well nourished patient who is awake, alert, rn and in no acute distress. Head/Face: Normocephalic, atraumatic. Eyes: Pupils equal round and reactive. Lids and lashes normal. Conjunctiva and sclera are non-icteric and not injected. Periorbital areas with no swelling, redness, or edema. ENT: MMM Neck: Trachea midline, no masses palpated, and no cervical lymphadenopathy. Supple, full range of motion without nuchal rigidity, or vertebral point tenderness. No Meningismus. Cardiovascular: Regular rate and rhythm. No pulse deficits. Respiratory: No increased work of breathing, no retractions or nasal flaring. Skin: Warm, dry with normal turgor. Normal color with no rashes, no lesions, and no evidence of cellulitis. MS/ Extremity: Pulses equal, no cyanosis. Neurovascular intact. Full, normal range of motion. Equal circumference. Neuro: Awake and alert, GCS 15, oriented to person, place, time, and situation. Cranial nerves II-XII grossly intact. Motor strength 5/5 in all extremities. Sensory grossly intact. Cerebellar exam normal. Normal gait. Vital Signs: 10:25 BP 151 / 90; Pulse 18; Resp 86; Temp 97.3(O); Pulse Ox 98% ; Weight 133.36 kg; Height 5 otero ft. 4 in. (162.56 cm); 11:51 BP 136 / 99; Pulse 81; Resp 16; Pulse Ox 98% on R/A; ab2 12:20 BP 127 / 79; Pulse 83; Resp 17; Pulse Ox 98% on R/A; ab2 10:25 Body Mass Index 50.46 (133.36 kg, 162.56 cm) otero [place] Coma Score: 12:10 Eye Response: spontaneous(4). Verbal Response: oriented(5). Motor Response: obeys rn commands(6). Total: 15. MDM: 10:36 Patient medically screened. rn 12:10 Differential diagnosis: hypertensive headache, intracerebral hemorrhage, migraine, rn neoplasm, tension headache, vasomotor headache. Data reviewed: vital signs, nurses notes, lab test result(s), EKG, radiologic studies, CT scan, and as a result, I will discharge patient. Counseling: I had a detailed discussion with the patient and/or guardian regarding: the historical points, exam findings, and any diagnostic results supporting the discharge/admit diagnosis, lab results, radiology results, the need for outpatient follow up, to return to the emergency department if symptoms worsen or persist or if there are any questions or concerns that arise at home. Response to treatment: the patient's symptoms have mildly improved after treatment, and as a result, I will discharge patient. Special discussion: I discussed with the patient/guardian in detail that at this point there is no indication for admission to the hospital. It is understood, however, that if the symptoms persist or worsen the patient needs to return immediately for re-evaluation. Based on the history and exam findings, there is no indication for further emergent testing or inpatient evaluation. I discussed with the patient/guardian the need to see the neurologist for further evaluation of the symptoms. 01/01 10:46 Order name: CBC with Diff rn 01/01 10:46 Order name: Basic Metabolic Panel; Complete Time: : rn 01/01 10:46 Order name: CT Head Brain wo Cont; Complete Time: : rn 01/01 10:46 Order name: [place] Screen Profile; Complete Time: 12:09 rn 01/01 10:47 Order name: CBC with Automated Diff; Complete Time: 11: EDMS 01/01 10:46 Order name: IV Start; Complete Time: 11:12 rn Administered Medications: 11:12 Drug: NS 0.9% 1000 ml Route: IV; Rate: 1000 ml; Site: left antecubital; ab2 12:12 Follow up: IV Status: Completed infusion ab2 11:12 Drug: Reglan (metoCLOPramide) 10 mg Route: IVP; Site: left antecubital; ab2 11:50 Follow up: Response: No adverse reaction ab2 11:12 Drug: Decadron - Dexamethasone 10 mg Route: IVP; Site: right antecubital; ab2 11:50 Follow up: Response: No adverse reaction ab2 Disposition Summary: 01/01/22 12:11 Discharge Ordered Location: Home rn Problem: an ongoing problem rn Symptoms: have improved rn Condition: Stable rn Diagnosis - Headache rn Followup: rn - With: Donavon Molina MD - When: As needed - Reason: Recheck today's complaints, Re-evaluation by your physician Discharge Instructions: - Discharge Summary Sheet rn - General Headache Without Cause rn - Migraine Headache rn Forms: - Medication Reconciliation Form rn - Thank You Letter rn - Antibiotic litigation attorney - Prescription Opioid Use rn Signatures: Dispatcher [employer] Bubba Thorne MD MD rn Au-Stager, Heather, RN RN ha Bleininger, Alexis ab2
[2022-01-01 12:37] VITALS: TEMP 97.3; O2SAT 98
[2022-01-01 12:40] VITALS: BP 127/79
== END 2022-01-01 12:21 | disposition home or self-care (01) ==
LOC: ER 10:18
DX: R51.9 Headache, unspecified (principal); E11.9 Type 2 diabetes mellitus without complications; E78.5 Hyperlipidemia, unspecified; I10 Essential (primary) hypertension; F32.A Depression, unspecified
CPT/HCPCS: 85025; 80048; 36415; 86308; 70450; 99284; J2765; J1100; J7030